=== PATIENT | male | born 1975 | race Caucasian/White ===

== ENCOUNTER 2020-10-06 20:48 | Inpatient (IN) | payer MEDICAID ==
[~2020-10-06] VITALS: Ht 177.8 cm; Wt 136.1 kg
[2020-10-06 22:37] LABS: HEMOGLOBIN 15.6 gm/dl (14.0-17.5); RED BLOOD COUNT 5.27 M/UL (4.20-5.50)
[2020-10-06 22:55] LABS: BUN/CREATININE RATIO 20 (0-10)
[2020-10-07] MEDS ORDERED: HYDROCHLOROTHIA50 MG PO (09:42)
[2020-10-07] MEDS ORDERED: LISINOPRIL20 MG PO (09:42)
[2020-10-07] MEDS ORDERED: METFORMIN HCL500 MG PO (09:43)
[2020-10-08 05:19] LABS: HEMOGLOBIN 14.6 gm/dl (14.0-17.5); RED BLOOD COUNT 4.98 M/UL (4.20-5.50); WHITE BLOOD COUNT 8.5 K/UL (4.5-11.0)
[2020-10-08 05:29] LABS: BUN/CREATININE RATIO 17 (0-10)
[2020-10-09 05:51] LABS: HEMOGLOBIN 14.3 gm/dl (14.0-17.5); RED BLOOD COUNT 4.89 M/UL (4.20-5.50); WHITE BLOOD COUNT 8.8 K/UL (4.5-11.0)
[2020-10-09 08:15] LABS: BUN/CREATININE RATIO 19 (0-10)
[2020-10-10 07:15] LABS: HEMOGLOBIN 14.8 gm/dl (14.0-17.5); RED BLOOD COUNT 5.27 M/UL (4.20-5.50); WHITE BLOOD COUNT 9.1 K/UL (4.5-11.0)
[2020-10-10 07:41] LABS: BUN/CREATININE RATIO 15 (0-10)
[2020-10-10] MEDS ORDERED: ELIQUIS5 MG PO (10:47)
[2020-10-10] MEDS ORDERED: ELIQUIS 5 MG TAB5 MG PO (10:47)
[2020-10-10] MEDS ORDERED: GLUCOPHAGE 850850 MG PO (10:50)
== END 2020-10-10 10:26 | disposition home or self-care (01) | DRG 299 ==
LOC: ER1 20:48 → CDU 10-07 01:44 → M/S 10-07 13:13
PROVIDERS: Internal Medicine; Physician Assistant; ADMIT Internal Medicine
PROC: B24BZZ4 Ultrasonography of Heart with Aorta, Transesophageal (ICD-10-PCS; principal; 2020-10-07)
DX: I82.4Z2 Acute embolism and thrombosis of unspecified deep veins of left distal lower extremity (principal); I26.99 Other pulmonary embolism without acute cor pulmonale; Z68.41 Body mass index [BMI] 40.0-44.9, adult; E11.9 Type 2 diabetes mellitus without complications; E66.9 Obesity, unspecified; I10 Essential (primary) hypertension; I50.9 Heart failure, unspecified; I07.1 Rheumatic tricuspid insufficiency; Z86.718 Personal history of other venous thrombosis and embolism; Z79.01 Long term (current) use of anticoagulants; Z90.49 Acquired absence of other specified parts of digestive tract
CPT/HCPCS: ECHO; 36415; 80048; 80053; 82550; 82553; 82962; 83036; 83874; 83880; 84484; 85025; 85379; 85610; 85730; 93005; 93306; 93970; 99285; J1650; Q9967; U0002